=== PATIENT | female | born 2000 | race Caucasian/White ===

== ENCOUNTER 2023-01-17 22:01 | Emergency (ER) | payer BC, SELFPAY ==
[2023-01-17 22:06] VITALS: BP 133/85; PULSE 86; RESP 18; TEMP 36.4; O2SAT 99; BMI 19.9
[2023-01-17 23:02] LABS: PCR FLU A Negative PCR FLU A (Negative); PCR FLU B Negative PCR FLU B (Negative); PCR RSV Negative PCR RSV (Negative)
[2023-01-17 23:05] LABS: SARS PCR* Negative SARS-CoV-2 (Negative)
--- NOTE | 2023-01-17 23:17 | CRLHL7_ITS ---
For Patients: As a result of the Century Cures Act, medical imaging exams and procedure reports are released immediately into your electronic medical record. You may view this report before your referring provider. If you have questions, please contact your health care provider. INDICATION: Cough. TECHNIQUE: Chest 1 views. COMPARISON: None. FINDINGS: Cardiovascular and mediastinum: Heart size and vasculature are normal in caliber and appearance. Lungs and pleural spaces: Lungs are clear. No sign of infiltrate or mass. No sign of pleural effusion. No pneumothorax. Bones and soft tissues: No significant findings. IMPRESSION: No acute or significant findings. Dictated by Bennie Sewell MD @ 01/18/2023 12:31:34 AM (Electronically Signed)
[2023-01-18 00:16] VITALS: BP 118/83; PULSE 74; RESP 98; O2SAT 98
--- NOTE | 2023-01-18 15:31 | ED_ITS ---
HPI - General Adult General Chief complaint: Cough Stated complaint: Sore throat and cough Time Seen by Provider: 01/17/23 23:00 History of Present Illness HPI narrative: Patient reports cough and sore throat since Wednesday. Unsure if she has had a fever . Delsym at home. No sick contacts. 22-year-old young woman presenting to the emergency department with her mom with concern of cough. Apparently it has been keeping her awake. They did buy some Delsym today and it has not helped a whole lot. She has not measured any fever but may have had some chills. Does have some environmental allergies as not treating them. Is not experiencing though the typical irritated eyes. I would note her to sound a little congested. No history of asthma or/reactive airway disease. Notes a history of recurrent pneumonia when much younger. Cough seems to be increasing and her sore throat is worse. Does have her last final coming up; history. Related Data Home Medications Medication Instructions Recorded Confirmed No Known Home Medications 01/17/23 01/17/23 Allergies Allergy/AdvReac Type Severity Reaction Status Date / Time Penicillins Allergy Intermediate Rash Verified 01/17/23 22:06 Review of Systems Status of ROS: Reports: 6 or more systems reviewed and unremarkable except as noted in History and below PFSH [facility] Social History Smoking Status: Never smoker Do you use any of these nicotine containing products: None Second hand tobacco smoke exposure: No How often do you have a drink containing alcohol: never How often do you have six or more drinks on one occasion: Never AUDIT-C Alcohol total score: 0 Non-prescribed substance use: denies use Exam Narrative: Exam Narrative: Tall. Pleasant. NAD. Speaking easily. Breathing easily. Does have frequent small cough. Sounds a little congested in the nasopharynx. There is no facial swelling erythema or tenderness. Eyes are bright without conjunctival injection. Oropharynx is moist. Mild erythema posteriorly. Can not visualize enough to determine degree of cobblestoning. Lungs are clear with good air movement. No stridor. Heart with regular rate and rhythm is without murmur rub or gallop. Neck is supple without lymphadenopathy. Const: Vital Signs, click to edit/add: Vital Signs - 24 hr 01/17/23 22:06 01/18/23 00:16 Temperature 97.6 F Pulse Rate [Pulse Oximeter] 86 74 Respiratory Rate 18 98 H Blood Pressure [Le ft Upper Arm] 133/85 118/83 Pulse Oximetry 99 98 Oxygen Delivery Me thod Room Air Room Air Documenting provider has reviewed patient's vital signs: yes Course Vital Signs Vital signs: Initial Vital Signs Temperature 97.6 F 01/17/23 22:06 Temperature Source Temporal Artery Scan 01/17/23 22:06 Pulse Rate 86 01/17/23 22:06 Pulse Rhythm Regular 01/17/23 22:06 Respiratory Rate 18 01/17/23 22:06 Blood Pressure 133/85 01/17/23 22:06 Blood Pressure Mean 101 01/17/23 22:06 Pulse Oximetry 99 01/17/23 22:06 Oxygen Delivery Method Room Air 01/17/23 22:06 Vital Signs Temperature 97.6 F 01/17/23 22:06 Pulse Rate 86 01/17/23 22:06 Respiratory Rate 18 01/17/23 22:06 Blood Pressure 133/85 01/17/23 22:06 Pulse Oximetry 99 01/17/23 22:06 Oxygen Delivery Method Room Air 01/17/23 22:06 Temperature 97.6 F 01/17/23 22:06 Pulse Rate 74 01/18/23 00:16 Respiratory Rate 98 H 01/18/23 00:16 Blood Pressure 118/83 01/18/23 00:16 Pulse Oximetry 98 01/18/23 00:16 Oxygen Delivery Method Room Air 01/18/23 00:16 Medical Decision Making MDM Narrative Medical decision making narrative: By the time I am seeing Ruthy, triple swab has been collected and pending. Seems to be relatively mild illness here. Appears to be URI with maybe some post nasal drip related cough possibly deeper inflammatory with presumptive diagnosis of than of bronchitis. I do propose waiting for triple swab result and then pending that treating with prednisone +/-prescription cough syrup. Triple swab is negative I discuss concerns. Mom notes how she lives 3 hours away and after discussion further would like to proceed with chest x-ray to confirm no pneumonia as moving through these finals. Chest x-ray reviewed by me is normal without infiltrate. No pneumothorax. They decide to forego prescription cough syrup and treat with prednisone per my recommendation. See patient discharge plan Lab Data Lab results reviewed: Yes I reviewed the patient's lab results Labs: Lab Results 01/17/23 Range/Units 22:12 SARS-CoV-2 (PCR) Negative SARS-CoV-2 (Negative) Influenza Type A (PCR) Negative PCR FLU A (Negative) Influenza Type B (PCR) Negative PCR FLU B (Negative) RSV (PCR) Negative PCR RSV (Negative) Discharge Plan Discharge Clinical Impression: Cough Patient Disposition: Home w/ Parent or Adult Condition: Stable Instructions: Acute Cough (ED) Additional Instructions: Focus on hydration. Might sleep under the mist of a cool mist humidifier. Can continue with the anesthetic throat lozenges or sprays. Can continue with Delsym. Consider pseudoephedrine for drying or decongestion. Does come in some longer- acting formulations. If you are experiencing some congestion and maybe some component of this might be postnasal drip, this could be helpful. Otherwise prednisone from [facility]. Best wishes on your finals. Prescriptions: No Action No Known Home Medications Follow Up/Referrals: Provider,Not a Local [Primary Care Provider] - Stand Alone Forms: [employer] Info Instructions
== END 2023-01-18 00:18 | disposition home or self-care (01) ==
PROVIDERS: Emergency Provider Family Medicine
DX: J06.9 Acute upper respiratory infection, unspecified (principal); Z20.822 Contact with and (suspected) exposure to COVID-19; R05.9 Cough, unspecified
CPT/HCPCS: 71045; 87631; 99283; 99284